=== PATIENT | female | born 1985 | race African-American/Black ===

== ENCOUNTER 2017-05-15 01:59 | Emergency (ER) | payer MEDICARE | END 2017-05-15 03:18 | disposition home or self-care (01) | LOC: D.ER 01:59 | DX: S01.112A Laceration without foreign body of left eyelid and periocular area, initial encounter (principal); W18.00XA Striking against unspecified object with subsequent fall, initial encounter; Y93.89 Activity, other specified; Y92.89 Other specified places as the place of occurrence of the external cause ==

== ENCOUNTER 2017-05-20 20:14 | Emergency (ER) | payer MEDICARE | END 2017-05-20 20:57 | disposition home or self-care (01) | LOC: D.ER 20:14 | DX: S01.112D Laceration without foreign body of left eyelid and periocular area, subsequent encounter (principal); X58.XXXD Exposure to other specified factors, subsequent encounter; Y92.89 Other specified places as the place of occurrence of the external cause; Z48.02 Encounter for removal of sutures ==

== ENCOUNTER 2017-07-06 17:54 | Emergency (ER) | payer MEDICARE | END 2017-07-06 19:00 | disposition left against medical advice (07) | LOC: D.ER 17:54 | DX: F41.9 Anxiety disorder, unspecified (principal) ==

== ENCOUNTER 2017-07-07 00:06 | Emergency (ER) | payer MEDICARE | END 2017-07-07 03:34 | disposition home or self-care (01) | LOC: D.ER 00:06 | DX: F41.0 Panic disorder [episodic paroxysmal anxiety] (principal) ==